=== PATIENT | male | born 1975 | race Hispanic/Latino ===

== ENCOUNTER 2018-02-07 20:20 | Emergency (ER) | payer SELFPAY ==
[2018-02-07] MEDS ORDERED: XYLOCAINE 1% 20 mL INFILTRATI ONE (22:37)
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
[2018-02-07] MEDS ORDERED: NORCO 5/325 PO ONE ×2 (22:38→23:23)
[2018-02-07] MEDS ORDERED: TRIPLE ANTIBIOTIC TP ONE (22:38)
[2018-02-07] MEDS ORDERED: BOOSTRIX IM ONE (22:38)
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
[2018-02-08 01:29] VITALS: BP 120/72
== END 2018-02-08 00:46 | disposition home or self-care (01) ==
LOC: ED 20:20
DX: S01.311A Laceration without foreign body of right ear, initial encounter (principal); S09.90XA Unspecified injury of head, initial encounter; F17.200 Nicotine dependence, unspecified, uncomplicated; F12.10 Cannabis abuse, uncomplicated; Y08.89XA Assault by other specified means, initial encounter; Y93.89 Activity, other specified; Y92.89 Other specified places as the place of occurrence of the external cause; Y99.8 Other external cause status
CPT/HCPCS: 70450; 90471; 90715; A6250